=== PATIENT | male | born 1965 | race Caucasian/White ===

== ENCOUNTER 2018-12-19 11:20 | Emergency (ER) | payer OTHER ==
[~2018-12-19] VITALS: Ht 167.6 cm; Wt 78.0 kg
--- NOTE | 2018-12-19 11:40 | NUR ---
CHYNA DENG AT BEDSIDE FOR MSE.
--- NOTE | 2018-12-19 11:45 | NUR ---
Patient discharged to home in stable conditon. Written and verbal after care instructions given. Patient verbalizes understanding of instructions. PT D/C W/ PRESCRIPTION. ALL BELONGINGS W/ PT. PT SELF-AMBULATED W/O DIFFICULTY.
[2018-12-19 11:47] VITALS: BP 118/74
== END 2018-12-19 11:48 | disposition home or self-care (01) ==
LOC: ER 11:20
DX: F20.9 Schizophrenia, unspecified (principal); R44.0 Auditory hallucinations
CPT/HCPCS: A4663